=== PATIENT | male | born 1960 | race Caucasian/White ===

== ENCOUNTER 2022-05-14 11:20 | Emergency (ER) | payer OTHER ==
[~2022-05-14] VITALS: Ht 180.3 cm; Wt 131.1 kg
== END 2022-05-14 16:34 | disposition home or self-care (01) ==
LOC: ER 11:20
DX: S81.812A Laceration without foreign body, left lower leg, initial encounter (principal); Z23 Encounter for immunization; W22.8XXA Striking against or struck by other objects, initial encounter; Y99.0 Civilian activity done for income or pay
CPT/HCPCS: 12004; 90471; 90714; 99282-25

== ENCOUNTER 2024-06-02 06:37 | Inpatient (IN) | payer OTHER ==
[~2024-06-02] VITALS: Ht 180.3 cm; Wt 115.3 kg
[2024-06-02 07:30] LABS: BASOPHILS ABSOLUTE AUTO 0.07 K/mm3 (0.00-0.23); BASOPHILS PERCENT AUTO 1 % (0-2); EOSINOPHILS ABSOLUTE AUTO 0.09 K/mm3 (0.00-0.68); EOSINOPHILS PERCENT AUTO 1 % (0-6); Hematocrit 44.2 % (37.0-53.0); Hemoglobin 15.4 g/dL (13.5-17.5); IMMATURE GRAN ABSOLUTE AUTO 0.05 K/mm3 (0.00-0.10); IMMATURE GRAN PERCENT AUTO 1 % (0-1); LYMPHOCYTES ABSOLUTE AUTO 1.37 K/mm3 (0.84-5.20); LYMPHOCYTES PERCENT AUTO 13 % (21-46); MONOCYTES ABSOLUTE AUTO 1.08 K/mm3 (0.16-1.47); MONOCYTES PERCENT AUTO 10 % (4-13); Mean Corpuscular HGB 30.9 pg (26.0-34.0); Mean Corpuscular HGB Conc 34.8 g/dL (31.5-36.5); Mean Corpuscular Volume 89 fL (80-100); Mean Platelet Volume 9.8 fL (9.1-12.4); NEUTROPHILS ABSOLUTE AUTO 7.86 K/mm3 (1.96-9.15); NEUTROPHILS PERCENT AUTO 75 % (41-73); Platelet Count 274 K/mm3 (150-400); RDW Coefficient Variation 13.1 % (11.7-14.2); RDW Standard Deviation 42.7 fL (35.1-46.3); Red Blood Cell Count 4.98 M/mm3 (4.30-5.90); White Blood Cell Count 10.52 K/mm3 (4.00-11.30)
[2024-06-02 07:48] LABS: Albumin/Globulin Ratio 0.9 (0.8-1.8); Bilirubin, Total 0.6 mg/dL (0.1-1.0); Bun/Creatinine Ratio 14.6 (12.0-20.0); Calcium, Blood 8.6 mg/dL (8.5-10.1); Creatinine, Blood 5.01 mg/dL (0.60-1.20); Globulin, Blood 4.4 g/dL (2.2-4.0); Potassium, Blood 3.8 mmol/L (3.5-5.5); Total Protein, Blood 8.4 g/dL (6.4-8.2)
[2024-06-02] MEDS ORDERED: Lactated Ringer's 1,000 ML IV ONE ×2 (08:25)
[2024-06-02] MEDS ORDERED: Robaxin750 MG PO (11:30)
[2024-06-02] MEDS ORDERED: GABA300 PO (11:30)
[2024-06-02] MEDS ORDERED: LISI20 PO (11:30)
[2024-06-02] MEDS ORDERED: SILD50TA PO (11:31)
[2024-06-02] MEDS ORDERED: DABI150C PO (11:31)
[2024-06-02] MEDS ORDERED: Acetaminophen 325 MG TABLET PO PRN (11:55)
[2024-06-02] MEDS ORDERED: OxyCODONE HCL 5 MG TAB PO PRN (11:55)
[2024-06-02] MEDS ORDERED: Ondansetron HCl 2 MG / ML 2ML Vial IV PRN (11:55)
[2024-06-02] MEDS ORDERED: NS 1,000 ML IV SCH (12:50)
--- NOTE | 2024-06-02 13:25 | NUR ---
1325- RECEIVED REPORT FROM SAIRA TREJO NURSE.
[2024-06-02 13:29] LABS: Source, Urine Clean Catch
[2024-06-02 13:32] LABS: BASOPHILS ABSOLUTE AUTO 0.05 K/mm3 (0.00-0.23); BASOPHILS PERCENT AUTO 1 % (0-2); EOSINOPHILS ABSOLUTE AUTO 0.13 K/mm3 (0.00-0.68); EOSINOPHILS PERCENT AUTO 2 % (0-6); Hematocrit 41.4 % (37.0-53.0); Hemoglobin 14.7 g/dL (13.5-17.5); IMMATURE GRAN ABSOLUTE AUTO 0.01 K/mm3 (0.00-0.10); IMMATURE GRAN PERCENT AUTO 0 % (0-1); LYMPHOCYTES ABSOLUTE AUTO 1.48 K/mm3 (0.84-5.20); LYMPHOCYTES PERCENT AUTO 21 % (21-46); MONOCYTES ABSOLUTE AUTO 0.75 K/mm3 (0.16-1.47); MONOCYTES PERCENT AUTO 10 % (4-13); Mean Corpuscular HGB 31.5 pg (26.0-34.0); Mean Corpuscular HGB Conc 35.5 g/dL (31.5-36.5); Mean Corpuscular Volume 89 fL (80-100); Mean Platelet Volume 9.6 fL (9.1-12.4); NEUTROPHILS ABSOLUTE AUTO 4.78 K/mm3 (1.96-9.15); NEUTROPHILS PERCENT AUTO 66 % (41-73); Platelet Count 252 K/mm3 (150-400); RDW Coefficient Variation 13.1 % (11.7-14.2); RDW Standard Deviation 42.7 fL (35.1-46.3); Red Blood Cell Count 4.66 M/mm3 (4.30-5.90)
[2024-06-02 13:44] VITALS: BP 99/63
[2024-06-02 13:51] LABS: Appearance, Urine Clear (Clear); Bilirubin, Urine Neg (Neg); Blood, Urine 2+ (Neg); Color, Urine Yellow (P-Yellow); Glucose Qualitative, Urine Neg (Neg); Ketones, Urine Neg (Neg); Leukocyte Esterase, Urine Neg (Neg); Nitrite, Urine Neg (Neg); Protein, Urine 2+ (Neg); Specific Gravity, Urine 1.015 (1.003-1.022); Urobilinogen, Urine NORM (Normal)
[2024-06-02 14:04] LABS: Red Blood Cells, Urine 0-2 /hpf (0-2); White Blood Cells, Urine 0-2 /hpf (0-5)
[2024-06-02 14:05] LABS: Bacteria Rare /hpf; Squamous Epithelial Cells Rare /hpf (Few)
[2024-06-02 14:09] LABS: Uric Acid, Blood 9.4 mg/dL (3.5-7.2)
[2024-06-02 14:11] LABS: Thyroid Stimulating Hormone 1.5 uIU/mL (0.360-4.800)
--- NOTE | 2024-06-02 14:43 | NUR ---
1440- NOTIFIED MD NAVARRO PT REFUSED JAIN CATHETER. STATED TO MONITOR I&O'S AND BLADDER SCAN PRN IF PT WAS NOT URINATING.
[2024-06-02 16:41] VITALS: BP 105/61
[2024-06-02] MEDS ORDERED: Thiamine HCl 100 MG Tab PO SCH (18:00)
[2024-06-02] MEDS ORDERED: Folic Acid 1 MG TAB PO SCH (18:00)
[2024-06-02] MEDS ORDERED: N-Acetylcysteine 600 MG CAP PO SCH (18:00)
[2024-06-02 18:02] LABS: Bun/Creatinine Ratio 20.8 (12.0-20.0); Calcium, Blood 8.5 mg/dL (8.5-10.1); Creatinine, Blood 3.17 mg/dL (0.60-1.20); Potassium, Blood 3.2 mmol/L (3.5-5.5)
--- NOTE | 2024-06-02 18:12 | NUR ---
1445- PT TO MEDICAL FLOOR IN STABLE CONDITION.
--- NOTE | 2024-06-02 18:22 | NUR ---
SUMMARY- PT AAOX4, BUT IRRITABLE. PT REFUSED JAIN CATHETER- AWARE. PT ALSO REFUSED REMOVAL OF RIGHT IV AND OFFER TO REPLACE IT WITH ARM/HAND IV INSTEAD. CHARGE LUIS M AWARE. MINIMAL COMPLAINTS OF GENERAL BODY ACHES. SBA DUE TO INTERMITTENT UNSTEADY GAIT AND LINES. PT ON RA. PT TOLERATING FULL LIQUID DIET. NO COMPLAINTS OF C/P OR PRESSURE THIS SHIFT SINCE ARRIVAL TO PCU FLOOR. NO ACUTE EVENTS THIS SHIFT.
--- NOTE | 2024-06-02 19:45 | NUR ---
dr. yang notified of potassium of 3.2. Dr. Yang in room to assess pt, new orders noted, IV removed from rt foot, pt tolerated well
[2024-06-02] MEDS ORDERED: Potassium Chloride 10 Meq Tablet SA PO ONE (19:46)
[2024-06-02 19:58] VITALS: BP 103/64
[2024-06-02 21:00] LABS: Magnesium, Blood 2.2 mg/dL (1.6-2.4)
[2024-06-02] MEDS ORDERED: Apixaban 5 MG Tab PO SCH (21:00)
[2024-06-03 00:08] VITALS: BP 91/43
[2024-06-03 04:09] VITALS: BP 106/60
--- NOTE | 2024-06-03 04:34 | NUR ---
PT HAS LARGE LOOSE BLACK LIQUID BOWEL MOVEMENT, BLOODY SMELLING. DR. GALINDO NOTIFIED. WILL CONTINUE TO MONITOR
[2024-06-03 04:40] LABS: Albumin, Blood 3.1 g/dL (3.4-5.0); Albumin/Globulin Ratio 0.8 (0.8-1.8); Bilirubin, Total 0.6 mg/dL (0.1-1.0); Calcium, Blood 8.2 mg/dL (8.5-10.1); Creatinine, Blood 2.11 mg/dL (0.60-1.20); Globulin, Blood 3.7 g/dL (2.2-4.0); Potassium, Blood 3.7 mmol/L (3.5-5.5); Total Protein, Blood 6.8 g/dL (6.4-8.2)
[2024-06-03] MEDS ORDERED: Pantoprazole Sodium 20 MG Tab PO SCH (06:00)
--- NOTE | 2024-06-03 06:08 | NUR ---
PT SLEPT AT INTERVALS, IVF'S INFUSING WITHOUT DIFFICULTY. PT AMBULATING TO BATHROOM NEEDED WITH STANDBY ASSISTANCE ONLY. PT AWARE OF NEED TO USE URINAL TO KEEP UP WITH ACCURATE INTAKE AND OUTPUT. CALL LIGHT IN REACH, NO S/S OF DISTRESS NOTED
[2024-06-03 08:08] VITALS: BP 111/60
[2024-06-03] MEDS ORDERED: Sodium Bicarbonate 650 MG Tab PO SCH (09:00)
[2024-06-03] MEDS ORDERED: Allopurinol 100 MG Tab PO SCH (10:00)
--- NOTE | 2024-06-03 10:36 | NUR ---
AM NOTE: PATIENT ALERT AND ORIENTED. STATES HE WOULD LIKE TO GO HOME. UP WITH SBA TO HELP MANAGE LINES/CORDS AND BED ALARM IN PLACE FOR SAFETY. DENIES PAIN/NUMBNESS/TINGLING THIS MORNING. TURNING SELF IN BED. TELE SHOWING SB WITH PAC'S. DENIES CHEST PAIN/PRESSURE/PALPITATIONS. SBP 110'S. IV NORMAL SALINE INFUSING PER EMAR. NO EDEMA NOTED. SCDS. ORDERS FOR MEDICAL STATUS NO TELE. ON ROOM AIR, LUNG SOUNDS CLEAR. DENIES SOB/COUGH. EVEN AND UNLABORED RESPIRTATIONS. BOWEL TONES PRESENT. 2 LIQUID DARK BROWN/BLACK BOWEL MOVEMENTS THIS AM. DR. MELANIE SENIOR AND MD SHOWN STOOL. FULL LIQUID DIET ADVANCED TO REGULAR. DENIES ABDOMINAL PAIN/NAUSEA. USING URINAL TO VOID. DR. NAVARRO TO BEDSIDE THIS AM. CALL LIGHT IN REACH. PATIENT DENIES NEEDS AT THIS TIME. BED ALARM IN PLACE.
[2024-06-03 12:12] VITALS: BP 117/63
[2024-06-03 15:10] VITALS: BP 100/53
--- NOTE | 2024-06-03 17:57 | NUR ---
TRANSFER NOTE: PATIENT ARRIVED TO THE UNIT VIA WHEELCHAIR ACCOMPANIED BY HIS SIGNIFICANT OTHER. PATIENT WAS ABLE TO SELF TRANSFER ONTO THE BED. LOCKED BELONGINGS OBTAINED FROM LOCK DRAWER FROM U5 AND GIVEN TO PATIENT'S SIGNIFICANT OTHER TO TAKE HOME. PATIENT IN BED, ALERT, CALL LIGHT PROVIDED, SIGNIFICANT OTHER AT BEDSIDE, SETTLED IN ROOM, NO SIGNS OR SYMPTOMS OF DISTRESS, PLAN OF CARE ONGOING.
--- NOTE | 2024-06-03 18:10 | NUR ---
TRANSFER TO MEDICAL: NO ACUTE CHANGES. VITAL SIGNS STABLE. NS CONTINUES TO INFUSE. DENIES PAINS. REPORTED OFF TO MEDICAL RN RYAN. GIRLFRIEND REMAINS AT BEDSIDE FOR TRANSFER. MEDICAL STATUS NO TELE. PATIENT TRANSFERRED WITH ALL PERSONAL BELONGINGS AND CHART VIA WHEELCHAIR.
--- NOTE | 2024-06-03 20:04 | NUR ---
AT APPROX 1946 PT FAMILY NOTIFIED THIS NURSE AND DAY SHIFT RN THAT PT NEEDED ASSISTANCE. PT NOTED TO BE COUGHING AND IN DISTRESS. PT REPORTS "HX OF SPASM THAT CAUSES HIM TO COUGH AND LOOSE MY BREATH." PT RECOVERED, AND APPEARS STABLE. DR. CHO NOTIFIED OF INCIDENT. ADVISED TO CONTINUE TO MONITOR.
[2024-06-03 20:14] VITALS: BP 99/57
[2024-06-04 03:45] VITALS: BP 90/48
--- NOTE | 2024-06-04 04:01 | NUR ---
PT HYPOTENSIVE AND BRADYCARDIC; ASYMPTOMATIC. PT TO D/C HOME TODAY. DR. UPTON NOTIFIED OF BP READINGS DURING SHIFT. DR. UPTON TO REVIEW CHART AND MAKE MED CHANGES IF NEEDED. .
[2024-06-04] MEDS ORDERED: NS 250 ML IV ONE ×2 (04:05→05:00)
--- NOTE | 2024-06-04 04:54 | NUR ---
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 PT NOTED TO HAVE CHOKING EPISODE AT BEGINNING OF SHIFT. PT REPORTS "SPASM, THAT HAS HAPPENED IN THE PAST." PT WAS NOT EATING OR DRINKING PRIOR TO SPASM. OXYGEN SATURATION DECREASED TO 86% RA, BUT HAS MAINTAINED ABOVE 90% RA SINCE. PT RECOVERED FROM EPISODE AND NO FURTHER EVENTS T/O SHIFT. SEE PREVIOIUS NURSING NOTE. NO OBSERVED DIFFICULTY WITH SWALLOWING. INDEPENDENT WITH BED MOBILITY. SBA WITH AMBULATION FOR LINE MANAGEMENT. PT NOTED TO BE TRENDING DOWN IN BP / HR. ASYMPTOMATIC. SEE PREVIOUS NURSING NOTE. NS 250 BOLUS ORDERED. INFUSING AT THS TIME. PT TO D/C HOME TODAY. BED IN LOWEST POSITOIN. CALL LIGHT IN REACH.
--- NOTE | 2024-06-04 05:22 | NUR ---
PT ADVISED AND EDUCATED ON SBA TO USE URINAL FOR LINE MANAGEMENT AND FOR SAFETY PT HAS HAD LOW BP. PT DECLINES SBA FOR SAFETY AND WENT BACK TO BED. PT RESTING IN BED AT THIS TIME.
[2024-06-04 05:34] VITALS: BP 99/52
[2024-06-04 06:05] LABS: BASOPHILS ABSOLUTE AUTO 0.06 K/mm3 (0.00-0.23); BASOPHILS PERCENT AUTO 1 % (0-2); EOSINOPHILS ABSOLUTE AUTO 0.16 K/mm3 (0.00-0.68); EOSINOPHILS PERCENT AUTO 3 % (0-6); Hemoglobin 12.3 g/dL (13.5-17.5); IMMATURE GRAN ABSOLUTE AUTO 0.03 K/mm3 (0.00-0.10); IMMATURE GRAN PERCENT AUTO 1 % (0-1); LYMPHOCYTES PERCENT AUTO 24 % (21-46); MONOCYTES ABSOLUTE AUTO 0.74 K/mm3 (0.16-1.47); MONOCYTES PERCENT AUTO 13 % (4-13); Mean Corpuscular HGB 31.1 pg (26.0-34.0); Mean Corpuscular HGB Conc 34.2 g/dL (31.5-36.5); Mean Corpuscular Volume 91 fL (80-100); Mean Platelet Volume 9.9 fL (9.1-12.4); NEUTROPHILS ABSOLUTE AUTO 3.46 K/mm3 (1.96-9.15); NEUTROPHILS PERCENT AUTO 59 % (41-73); Platelet Count 245 K/mm3 (150-400); RDW Coefficient Variation 13.2 % (11.7-14.2); RDW Standard Deviation 43.8 fL (35.1-46.3); Red Blood Cell Count 3.96 M/mm3 (4.30-5.90); White Blood Cell Count 5.85 K/mm3 (4.00-11.30)
--- NOTE | 2024-06-04 06:20 | NUR ---
DR. UPTON NOTIFIED OF RECHECK BP: 99/52, PULSE 54. ASYMPTOMATIC. DR. UPTON ADVISED TO CONTINUE TO MONITOR.
[2024-06-04 06:30] LABS: Bun/Creatinine Ratio 25.2 (12.0-20.0); Calcium, Blood 8.3 mg/dL (8.5-10.1); Creatinine, Blood 1.11 mg/dL (0.60-1.20); Potassium, Blood 3.6 mmol/L (3.5-5.5)
[2024-06-04 07:53] VITALS: BP 108/64
[2024-06-04] MEDS ORDERED: ALLO100 PO (12:13)
[2024-06-04] MEDS ORDERED: PANT20 PO (12:13)
[2024-06-04] MEDS ORDERED: FOLI1 PO (12:13)
[2024-06-04] MEDS ORDERED: SODBIC650 PO (12:14)
--- NOTE | 2024-06-04 13:53 | NUR ---
DISCHARGE ORDERS GIVEN AND IMPLEMENTED AND PT STATED UNDERSTANDING, IV DCED
== END 2024-06-04 12:28 | disposition home or self-care (01) | DRG 684 ==
LOC: ER 06:37 → PCU 11:20 → MEDS 06-03 18:00
PROVIDERS: Emergency Medicine; Internal Medicine; ADMIT Family Medicine
DX: N17.9 Acute kidney failure, unspecified (principal); E79.0 Hyperuricemia without signs of inflammatory arthritis and tophaceous disease; E86.0 Dehydration; F10.20 Alcohol dependence, uncomplicated; I10 Essential (primary) hypertension; Z86.711 Personal history of pulmonary embolism; Z60.2 Problems related to living alone; Z79.899 Other long term (current) drug therapy; E66.9 Obesity, unspecified
CPT/HCPCS: 36415; 71046; 71275; 76700; 80048; 80053; 80320; 81001; 83605; 83690; 83735; 84443; 84484; 84550; 85025; 93005; 93010; 96360; 96361; 99285-25; A9270; J2470; J7030; J7050; J7120; Q9967